=== PATIENT | male | born 1935 | race Caucasian/White ===

== ENCOUNTER 2018-01-28 10:36 | Inpatient (IN) | payer MEDICARE, OTHER ==
[2018-01-28] VITALS (11 sets, daily range): BP systolic 95–112; BP diastolic 65–81; PULSE 56–128; RESP 18–22; TEMP 97.4–97.5; O2SAT 95–98
[~2018-01-28] VITALS: Ht 198.1 cm; Wt 96.3 kg
[~2018-01-28 10:36] MED LIST: ACET325T11 PO; ARIC10TA PO; DUONI NEB; FENO50TA PO; FENT50DI T-DERMAL; IBAN150T3 PO; KETO2SHA5 TOP; LACT20SO4 PO; LEVA500T PO; LEXA10TA PO; MAGN30S PO; PERC10TA27 PO; REME30TA PO; SIMV20 PO; [UNRECOGNIZED DRUG - CODE] EX
[2018-01-28] MEDS ORDERED: FENO145T2 PO (10:55)
[2018-01-28] MEDS ORDERED: LACT10SO PO (10:55)
[2018-01-28] MEDS ORDERED: OCUVTAB4 PO (10:55)
[2018-01-28] MEDS ORDERED: SIME1CHW10 (10:55)
[2018-01-28] MEDS ORDERED: HYDR1OIN25 (10:55)
[2018-01-28] MEDS ORDERED: PERC10TA27 PO (10:55)
[2018-01-28] MEDS ORDERED: REFR0.5D4 EACH EYE (10:55)
[2018-01-28] MEDS ORDERED: MILKSUS PO (10:55)
[2018-01-28] MEDS ORDERED: IBAN150T3 PO (10:55)
[2018-01-28] MEDS ORDERED: MIRT30TA PO (10:55)
[2018-01-28] MEDS ORDERED: DILT120C9 PO (10:55)
[2018-01-28] MEDS ORDERED: TUSSLIQ3 PO (10:55)
[2018-01-28] MEDS ORDERED: FURO1TAB62 PO (10:55)
[2018-01-28] MEDS ORDERED: DONE10TA7 PO (10:55)
[2018-01-28] MEDS ORDERED: POTA10CA PO (10:55)
[2018-01-28] MEDS ORDERED: CALC1TAB12 PO (10:55)
[2018-01-28] MEDS ORDERED: KETO2CRE TOPICAL (10:55)
[2018-01-28] MEDS ORDERED: ZOCO20TA PO (10:55)
[2018-01-28] MEDS ORDERED: IPRASOL INH (10:55)
[2018-01-28] MEDS ORDERED: BENA25TA6 PO (10:55)
[2018-01-28] MEDS ORDERED: THERTAB17 PO (10:55)
[2018-01-28] MEDS ORDERED: ACET325C PO (10:55)
[2018-01-28] MEDS ORDERED: SODIUM CHLOR 0.9% 1000 ML INJ 1,000 ML IV ONE (11:00)
--- NOTE | 2018-01-28 11:19 | RADRPT ---
EXAM DATE/TIME: 01/28/2018 11:02 [facility] COMPARISON: CHEST SINGLE AP, July 18, 2016, 7:11. INDICATIONS : Short of breath MEDICAL HISTORY : None. SURGICAL HISTORY : None. ENCOUNTER: Initial ACUITY: 1 day PAIN SCORE: 0/10 LOCATION: Bilateral chest FINDINGS: A single AP semierect portable view of the chest was obtained. Elevation of the right hemidiaphragm i s again noted. Study appears more Midinspiratory with patchy perihilar and bibasal opacities noted. T here is no focal consolidation or distinct effusion. The heart size remains mildly enlarged. Atherosc lerotic changes are present in the aorta. CONCLUSION: Midinspiratory study with mild patchy perihilar and bibasilar opacities which may be artifactual. Franco Lamas MD on January 28, 2018 at 11:15 Board Certified Radiologist. This report was verified electronically.
[2018-01-28 11:32] LABS: AUTOMATED NEUTROPHIL # 6.5 TH/MM3 (1.8-7.7); BASOPHIL # 0.5 TH/MM3 (0-0.2); BASOPHIL % 4.9 % (0.0-2.0); EOSINOPHIL # 0.1 TH/MM3 (0-0.4); EOSINOPHIL % 0.6 % (0.0-4.0); HEMATOCRIT 41.1 % (39.0-51.0); HEMOGLOBIN 13.2 GM/DL (13.0-17.0); LYMPH % 13.4 % (9.0-44.0); LYMPHOCYTE # 1.2 TH/MM3 (1.0-4.8); MEAN CELL VOLUME 84.1 FL (80.0-100.0); MEAN CORPUSCULAR HEMOGLOBIN 26.9 PG (27.0-34.0); MEAN PLATELET VOLUME 7.8 FL (7.0-11.0); MONO % 9.8 % (0.0-8.0); MONOCYTE # 0.9 TH/MM3 (0-0.9); NEUT % 71.3 % (16.0-70.0); PLATELET COUNT 366 TH/MM3 (150-450); RED BLOOD COUNT 4.89 MIL/MM3 (4.50-5.90); RED CELL DISTRIBUTION WIDTH 14.6 % (11.6-17.2); WHITE BLOOD COUNT 9.2 TH/MM3 (4.0-11.0)
[2018-01-28 11:36] LABS: CHLORIDE 97 MEQ/L (98-107); SODIUM (NA) 130 MEQ/L (136-145)
[2018-01-28 11:40] LABS: CALCIUM 9.1 MG/DL (8.5-10.1)
[2018-01-28 11:41] LABS: ALBUMIN 3.1 GM/DL (3.4-5.0); BICARBONATE 26.3 MEQ/L (21.0-32.0); BLOOD UREA NITROGEN 16 MG/DL (7-18); GLUCOSE,RANDOM 131 MG/DL (74-106)
[2018-01-28 11:44] LABS: ALT (GPT) 509 U/L (12-78)
[2018-01-28 11:45] LABS: GLOMERULAR FILTRATION RATE 108 ML/MIN (>89)
[2018-01-28 11:46] LABS: TOTAL BILIRUBIN ADULT 0.7 MG/DL (0.2-1.0); TOTAL PROTEIN 7.5 GM/DL (6.4-8.2)
[2018-01-28 11:47] LABS: ALKALINE PHOSPHATASE 79 U/L (45-117)
[2018-01-28 11:49] LABS: TROPONIN I 0.06 NG/ML (0.02-0.05)
[2018-01-28 11:53] LABS: AST (GOT) 1189 U/L (15-37)
[2018-01-28] MEDS ORDERED: FUROSEMIDE 40 MG/4 ML VIAL IV PUSH ONE (12:00)
--- NOTE | 2018-01-28 13:11 | PD ---
HPI Chief Complaint: Respiratory Symptoms Time Seen by Provider: 10:50 Travel History International Travel<30 days: No Contact w/Intl Traveler<30days: No Traveled to known affect area: No History of Present Illness HPI This 82-year-old male is complaining of shortness of breath. He says he been short of breath for 2 months and seems to be getting worse. He stopped smoking 40 or 50 years ago he has not had any fever or chills. Says he had a poor appetite. He has not had any chest pain. He has no history of diabetes. He has not had any alcohol for about 10 years. He says his been in a senior living for 9 years. 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 He has not had fever or chills. He is brought by paramedics and noted that he had tachycardia at a rate of about 120 PFSH Past Medical History Hx Anticoagulant Therapy: Yes Arthritis: Yes Blood Disorders: No Bipolar Disorder: Yes Heart Rhythm Problems: No Cancer: Yes (SKIN ONLY) Cardiovascular Problems: Yes (DVT/HTN/HYPERLIPIDEMMIA) High Cholesterol: Yes Chemotherapy: No Congestive Heart Failure: Yes Cerebrovascular Accident: No Dementia: Yes Diabetes: No Endocrine: No Gastrointestinal Disorders: No Genitourinary: No Hypertension: Yes Immune Disorder: No Implanted Vascular Access Dvce: No Medical other: Yes (ENCEPHALOPATHY/DEPRESSION/ ) Musculoskeletal: Yes Neurologic: No Psychiatric: No Reproductive: No Respiratory: Yes Radiation Therapy: No Past Surgical History Abdominal Surgery: Yes (EXP LAPAROTOMY APPY) AICD: No Cardiac Surgery: No Hysterectomy: No Joint Replacement: Yes (LEFT KNEE) Pacemaker: No Thoracic Surgery: No Other Surgery: Yes (RIGHT BKA) Social History Alcohol Use: Yes (3-4 TIMES A WEEK) Tobacco Use: No Substance Use: No Allergies-Medications (Allergen,Severity, Reaction): Coded Allergies: penicillin G (Unverified Allergy, Severe, Anaphylaxis, 01/28/18) Reported Meds & Prescriptions Reported Meds & Active Scripts Active Reported Tussin Dm 100-10 mg/5Ml (Dextromethorphan-Guaifenesin) 100 Mg-10 Mg/5 Ml Liq 10 Ml PO Q6HR PRN Thera-M (Multiple Vitamins W/ Minerals) 1 Tab 1 Tab PO DAILT Zocor (Simvastatin) 20 Mg Tab 20 Mg PO HS Gas Relief (Simethicone) 80 Mg Chw Refresh Tears Opth Drops (Carboxymethylcellulose Sodium Opth Drops) 0.5% Drops 1 Drop EACH EYE DAILY Preservision Areds (Multiple Vitamins W/ Minerals) 1 Tab 1 Tab PO DAILY Potassium Chloride ER (Potassium Chloride) 10 Meq Cap 10 Meq PO DAILY Percocet (Oxycodone-Acetaminophen) 10-325 mg Tab 1 Tab PO Q4H PRN Calcium 500 +D (Calcium Carbonate-Cholecalciferol) 500-400 Mg-Unit Tab 1 Tab PO BID Mirtazapine 30 Mg Tab 30 Mg PO HS Milk of Magnesia Liq (Magnesium Hydroxide) 400 Mg/5 Ml Susp 15 Ml PO DAILY PRN Lasix (Furosemide) 20 Mg Tab 20 Mg PO BID Lactulose Liq (Lactulose) 10 Gm/15 Ml Soln 30 Ml PO DAILY Ketoconazole Topical 2% Cream 1 Applic TOPICAL BID Duoneb (Ipratropium-Albuterol Neb) 0.5-2.5 Mg/3 Ml Neb 1 Nebule INH BID Ibandronate (Ibandronate Sodium) 150 Mg Tab 150 Mg PO Q28D Fenofibrate 145 Mg Tab 145 Mg PO DAILY Donepezil 10 Mg Tab 10 Mg PO HS Diltiazem ER 12 HR (Diltiazem HCl) 120 Mg Caper 120 Mg PO BID Benadryl Allergy (Diphenhydramine HCl) 25 Mg Tablet 25 Mg PO HS PRN Acetaminophen 325 Mg Capsule 650 Mg PO Q6HR PRN Hydrocortisone 1% in Abso (Hydrocortisone (Topical)) 1 % Oin Review of Systems General / Constitutional: No: Fever, Chills Eyes: No: Diploplia, Blurred Vision HENT: No: Headaches, Vertigo Cardiovascular: Positive: Palpitations, No: Chest Pain or Discomfort Respiratory: Positive: Shortness of Breath Gastrointestinal: No: Nausea, Vomiting Genitourinary: No: Urgency, Frequency Musculoskeletal: No: Myalgias, Arthralgias Skin: No Rash Neurologic: No: Weakness, Dizziness Endocrine: No: Cold Intolerance Hematologic/Lymphatic: No: Easy Bruising Physical Exam Narrative GENERAL: Well-developed male SKIN: Focused skin assessment warm/dry. HEAD: Atraumatic. Normocephalic. EYES: Pupils equal and round. No scleral icterus. No injection or drainage. ENT: No nasal bleeding or discharge. Mucous membranes pink and moist. NECK: Trachea midline. No JVD. CARDIOVASCULAR: Rapid regular rate and rhythm. No murmur appreciated. RESPIRATORY: No accessory muscle use. There are scattered rhonchi GASTROINTESTINAL: Abdomen soft, obese, nondistended. Hepatic and splenic margins not palpable. MUSCULOSKELETAL: He has an amputation of the right leg. The left leg is held in flexion and cannot extend. 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 No obvious cranial nerve deficits. Motor grossly within normal limits. Normal speech. PSYCHIATRIC: Appropriate mood and affect; insight and judgment normal. Data Data Last Documented VS Vital Signs Date Time Temp Pulse Resp B/P (MAP) Pulse Ox O2 Delivery O2 Flow Rate FiO2 01/28/18 11:44 124 18 111/72 (85) 97 Nasal Cannula 3.00 01/28/18 10:45 97.4 Orders Orders Electrocardiogram (01/28/18 10:56) Complete Blood Count With Diff (01/28/18 10:56) Comprehensive Metabolic Panel (01/28/18 10:56) Troponin I (01/28/18 10:56) B-Type Natriuretic Peptide (01/28/18 10:56) Urinalysis - C+S If Indicated (01/28/18 10:56) Chest, Single Ap (01/28/18 10:56) Sodium Chlor 0.9% 1000 Ml Inj (Ns 1000 M (01/28/18 11:00) Ct Abd/Pel W Iv Contrast(Rout) (01/28/18 11:54) Ct Pulmonary Angiogram (01/28/18 11:54) Furosemide Inj (Lasix Inj) (01/28/18 12:00) Iohexol 350 Inj (Omnipaque 350 Inj) (01/28/18 13:34) Labs Laboratory Tests Test 01/28/18 11:20 White Blood Count 9.2 TH/MM3 Red Blood Count 4.89 MIL/MM3 Hemoglobin 13.2 GM/DL Hematocrit 41.1 % Mean Corpuscular Volume 84.1 FL Mean Corpuscular Hemoglobin 26.9 PG Mean Corpuscular Hemoglobin Concent 32.0 % Red Cell Distribution Width 14.6 % Platelet Count 366 TH/MM3 Mean Platelet Volume 7.8 FL Neutrophils (%) (Auto) 71.3 % Lymphocytes (%) (Auto) 13.4 % Monocytes (%) (Auto) 9.8 % Eosinophils (%) (Auto) 0.6 % Basophils (%) (Auto) 4.9 % Neutrophils # (Auto) 6.5 TH/MM3 Lymphocytes # (Auto) 1.2 TH/MM3 Monocytes # (Auto) 0.9 TH/MM3 Eosinophils # (Auto) 0.1 TH/MM3 Basophils # (Auto) 0.5 TH/MM3 CBC Comment DIFF FINAL Differential Comment Blood Urea Nitrogen 16 MG/DL Creatinine 0.70 MG/DL Random Glucose 131 MG/DL Total Protein 7.5 GM/DL Albumin 3.1 GM/DL Calcium Level 9.1 MG/DL Alkaline Phosphatase 79 U/L Aspartate Amino Transf (AST/SGOT) 1189 U/L Alanine Aminotransferase (ALT/SGPT) 509 U/L Total Bilirubin 0.7 MG/DL Sodium Level 130 MEQ/L Potassium Level 5.0 MEQ/L Chloride Level 97 MEQ/L Carbon Dioxide Level 26.3 MEQ/L Anion Gap 7 MEQ/L Estimat Glomerular Filtration Rate 108 ML/MIN Troponin I 0.06 NG/ML B-Type Natriuretic Peptide 917 PG/ML [facility] Medical Decision Making Medical Screen Exam Complete: Yes Emergency Medical Condition: Yes Medical Record Reviewed: Yes Differential Diagnosis Differential includes CHF, COPD, pneumonia Narrative Course EKG shows a narrow complex tachycardia at a rate of 125 there are inverted T waves in V4 and V5 as well as leads II, III and aVF. Chest x-ray is read as showing elevation of the right hemidiaphragm there are mild patchy perihilar and bibasilar opacities which may be artifactual. Patient is very large and is quite sedentary and at high risk for PE. I have ordered a CT pulmonary angiogram. His BNP is elevated. Troponin is 0.06 CT pulmonary angiogram shows evidence of right lower lobe pulmonary emboli with dense surrounding consolidation. There are small bilateral pleural effusions CT abdomen and pelvis shows cholelithiasis without gallbladder wall thickening heterogeneous liver with ill-defined low-attenuation areas and simple cyst in left lobe Diagnosis Primary Impression: Acute pulmonary embolus Dequan Felton MD Jan 28, 2018 13:11
[2018-01-28] MEDS ORDERED: IOHEXOL 350 MG/ML 10 ML VIAL (for RAD DIAG) IVCONTRAST ONE (13:34)
--- NOTE | 2018-01-28 13:50 | RADRPT ---
EXAM DATE/TIME: 01/28/2018 13:20 [facility] COMPARISON: CHEST SINGLE AP, January 28, 2018, 11:02. INDICATIONS : Short of breath. IV CONTRAST: 95 cc Omnipaque 350 (iohexol) IV ; Cumulative dose for multiple exams. RADIATION DOSE: 21.31 CTDIvol (mGy) MEDICAL HISTORY : Deep venous thrombosis. Cardiovascular disease Hypertension.Anticoagulant therapy. SURGICAL HISTORY : Appendectomy. ENCOUNTER: Initial ACUITY: 1 day PAIN SCALE: 0/10 LOCATION: chest TECHNIQUE: Volumetric scanning of the chest was performed using a pulmonary embolism protocol MIP images were re constructed. Using automated exposure control and adjustment of the mA and/or kV according to patien t size, radiation dose was kept as low as reasonably achievable to obtain optimal diagnostic quality images. DICOM format image data is available electronically for review and comparison. Follow-up recommendations for detected pulmonary nodules are based at a minimum on nodule size and pa tient risk factors according to Fleischner Society Guidelines. FINDINGS: PULMONARY ARTERIES: The main pulmonary artery and right and left branch vessels are intact. There are ill-defined filling defects and loss of normal portions of the right lower lobe pulmonary artery with dense surrounding consolidation. LUNGS: There is no pneumothorax . There is dense consolidation in the right lower lobe with air bronchograms . No concerning pulmonary nodule is visualized. PLEURAE: There are small bilateral pleural effusions. MEDIASTINUM: There is good visualization of the great vessels of the middle mediastinum. No evidence of mediastin al or hilar adenopathy/mass. Coronary artery calcifications are present. There is cardiomegaly. MUSCULOSKELETAL: Within normal limits for patient age. MISCELLANEOUS: The visualized upper abdominal organs demonstrate no acute abnormality. Multiple calcified gallstones are noted in the gallbladder. CONCLUSION: 1. Evidence of right lower lobe pulmonary emboli with dense surrounding consolidation. 2. Small bilateral pleural effusions. Franco Lamas MD on January 28, 2018 at 13:42 Board Certified Radiologist. This report was verified electronically.
--- NOTE | 2018-01-28 13:53 | RADRPT ---
EXAM DATE/TIME: 01/28/2018 13:20 [facility] COMPARISON: No previous studies available for comparison. INDICATIONS : Abdominal distention. IV CONTRAST: 95 cc Omnipaque 350 (iohexol) IV ; Cumulative dose for multiple exams. ORAL CONTRAST: No oral contrast ingested. RADIATION DOSE: 17.69 CTDIvol (mGy) MEDICAL HISTORY : Cardiovascular disease. Deep venous thrombosis. Hypertension.Anticoagulant therapy. SURGICAL HISTORY : Appendectomy. ENCOUNTER: Initial ACUITY: 1 day PAIN SCALE: 3/10 LOCATION: Bilateral pelvis abdomen TECHNIQUE: Volumetric scanning of the abdomen and pelvis was performed. Using automated exposure control and ad justment of the mA and/or kV according to patient size, radiation dose was kept as low as reasonably achievable to obtain optimal diagnostic quality images. DICOM format image data is available electro nically for review and comparison. FINDINGS: LOWER LUNGS: There is evidence of pulmonary embolism again noted in the right lower lobe pulmonary arteries with d ense consolidation. Small bilateral pleural effusions are present. LIVER: Liver is normal in size but heterogeneous in density with a simple cyst noted in the left lobe of the liver. There is no dilation of the biliary tree. There are multiple tiny calcified gallstones layeri ng dependently. SPLEEN: Normal size without lesion. PANCREAS: Within normal limits. KIDNEYS: Normal in size and shape. There is no mass, stone or hydronephrosis. ADRENAL GLANDS: Within normal limits. VASCULAR: There is no aortic aneurysm. BOWEL/MESENTERY: There are multiple loops of nondilated air-containing small bowel with multiple small air-fluid level s. There is no free air or fluid. Gas and stool noted segmental and colon. There is mild anasarca. ABDOMINAL WALL: Within normal limits. RETROPERITONEUM: There is no lymphadenopathy. BLADDER: No wall thickening or mass. REPRODUCTIVE: Within normal limits. INGUINAL: There is no lymphadenopathy or hernia. MUSCULOSKELETAL: Within normal limits for patient age. CONCLUSION: 1. Right lower lobe pulmonary embolism again identified with small bilateral pleural effusions and de nse consolidation in the right lower lobe. 2. Cholelithiasis with multiple small gallstones with no gallbladder wall thickening or pericholecyst ic fluid. 3. Nonspecific, nonobstructed bowel gas pattern most characteristic of an ileus. 4. Heterogeneous liver with ill-defined low-attenuation areas and simple cyst in the left lobe of the liver. This is nonspecific but could be secondary to fatty infiltration and focal fatty sparing. Franco Lamas MD on January 28, 2018 at 13:48 Board Certified Radiologist. This report was verified electronically.
[2018-01-28] MEDS ORDERED: ONDANSETRON HCL 4 MG/2 ML VIAL IVP PRN (15:15)
[2018-01-28] MEDS ORDERED: NALOXONE HCL 0.4 MG/ML AMP IV PUSH PRN (15:15)
[2018-01-28] MEDS ORDERED: ACETAMINOPHEN 325 MG TAB PO PRN (15:15)
[2018-01-28] MEDS ORDERED: SODIUM CHLORIDE 0.9% FLUSH 10 ML FLUSH IV FLUSH PRN (15:15)
[2018-01-28 15:16] LABS: INTERNATIONAL NORMALIZED RATIO 1.8 RATIO; PROTHROMBIN TIME - PATIENT 18.5 SEC (9.8-11.6)
--- NOTE | 2018-01-28 15:50 | HHI.HP ---
[facility] Service [facility] Primary Care Physician Js Brown M.D. Admission Diagnosis ACUTE PULMONARY EMBOLUS Diagnoses: Chief Complaint: Shortness of breath Travel History International Travel<30 Days: No Contact w/Intl Traveler <30 Da: No Traveled to Known Affected Are: No History of Present Illness This patient is an 82-year-old gentleman with at least a week of increased work of breathing and shortness of breath. Patient is poorly mobile at baseline due to previous right AKA and left leg contractures. He has had increased edema on the left extremity and increased work of breathing and shortness of breath per his report. Patient was not hypoxemic but he was hypotensive and quite edematous on arrival in the emergency room. He normally lives in a long term facility in long-term care and came for evaluation after several days of complaints. Here he has been found to be tachycardic and hypotensive with hyponatremia and elevated LFTs and elevated BNP. Patient also been evaluated by CT and joint found to have an acute pulmonary embolism. Patient is recommended for admission in the hospital by the ER MD. Patient does carry a DO NOT RESUSCITATE with him and does not want aggressive measures undertaken. Patient is hypotensive with a pulmonary embolism and is not a candidate for TPA given his underlying comorbidities. Patient would like medical management and is agreeable to heparin with some anticoagulation long-term. Of note he was recently admitted to the hospital and [facility] last month with acute onset of atrial fibrillation and deemed not a candidate for anticoagulation due to increased fall risks. At this time patient does complain of moderate back pain and previously had been taking Percocet at the rehab. Review of Systems Constitutional: COMPLAINS OF: Weight gain Endocrine: DENIES: Heat/cold intolerance, Polydipsia, Polyuria, Polyphagia Eyes: DENIES: Blurred vision, Diplopia, Eye inflammation, Eye pain, Vision loss , Photosensitivity, Double Vision Ears, nose, mouth, throat: DENIES: Tinnitus, Hearing loss, Vertigo, Nasal discharge, Oral lesions, Throat pain, Hoarseness, Ear Pain, Running Nose, Epistaxis, Sinus Pain, Toothache, Odynophagia Respiratory: COMPLAINS OF: Shortness of breath, DENIES: Apneas, Cough, Snoring , Wheezing, Hemoptysis, Sputum production Cardiovascular: COMPLAINS OF: Lower Extremity Edema, DENIES: Chest pain, Palpitations, Syncope, Dyspnea on Exertion, PND, Orthopnea, Claudication Gastrointestinal: DENIES: Abdominal pain, Black stools, Bloody stools, Constipation, Diarrhea, Nausea, Vomiting, Difficulty Swallowing, Anorexia Genitourinary: DENIES: Sexual dysfunction, Urinary frequency, Urinary incontinence, Urgency, Hematuria, Dysuria, Nocturia, Penile Discharge, Testicular Pain, Testicular Swelling Musculoskeletal: COMPLAINS OF: Joint pain, Back pain, DENIES: Muscle aches, Stiffness, Joint Swelling, Neck pain Integumentary: DENIES: Abnormal pigmentation, Nail changes, Pruritus, Rash Hematologic/lymphatic: DENIES: Bruising, Lymphadenopathy Neurologic: COMPLAINS OF: Poor Balance, DENIES: Abnormal gait, Headache, Localized weakness, Paresthesias, Seizures, Speech Problems, Tremor Psychiatric: DENIES: Anxiety, Confusion, Mood changes, Depression, Hallucinations, Agitation, Suicidal Ideation, Homicidal Ideation, Delusions Except as stated in HPI: all other systems reviewed are Neg Past Family Social History Past Medical History Atrial fibrillation Hyperlipidemia History of dementia, and depression Past Surgical History Right AKA, expiratory laparotomy Appendectomy ectomy Reported Medications Reviewed in the EMR and [facility] records Allergies: Coded Allergies: penicillin G (Unverified Allergy, Severe, Anaphylaxis, 01/28/18) Active Ordered Medications Reviewed in the EMR Family History Noncontributory secondary to acute complaint Social History No current tobacco, rehab resident in long-term care Physical Exam Vital Signs Vital Signs Date Time Temp Pulse Resp B/P (MAP) Pulse Ox O2 Delivery O2 Flow Rate FiO2 01/28/18 11:44 124 18 111/72 (85) 97 Nasal Cannula 3.00 01/28/18 11:31 96 Nasal Cannula 3.00 01/28/18 10:45 97.4 124 22 98/81 (87) 96 Physical Exam GENERAL: This is a well-nourished, well-developed patient, complaining of back pain and short of breath SKIN: No rashes, ecchymoses or lesions. Cool and dry. HEAD: Atraumatic. Normocephalic. No temporal or scalp tenderness. EYES: Pupils equal round and reactive. Extraocular motions intact. No scleral icterus. No injection or drainage. ENT: Nose without bleeding, purulent drainage or septal hematoma. Throat without erythema, tonsillar hypertrophy or exudate. Uvula midline. Airway patent. NECK: Trachea midline. No JVD or lymphadenopathy. Supple, nontender, no meningeal signs. CARDIOVASCULAR: Tachycardia rhythm without murmurs, gallops, or rubs. RESPIRATORY: Decreased breath sounds bilaterally Poor effort GASTROINTESTINAL: Abdomen soft, non-tender, nondistended. No hepato-splenomegaly , or palpable masses. No guarding. MUSCULOSKELETAL: Right AKA,, left leg contractures, +3 edema left leg NEUROLOGICAL: Awake and alert. Cranial nerves II through XII intact. Motor and sensory grossly within normal limits. Five out of 5 muscle strength in all muscle groups. Normal speech. Laboratory Laboratory Tests Test 01/28/18 11:20 01/28/18 14:30 White Blood Count 9.2 Red Blood Count 4.89 Hemoglobin 13.2 Hematocrit 41.1 Mean Corpuscular Volume 84.1 Mean Corpuscular Hemoglobin 26.9 Mean Corpuscular Hemoglobin Concent 32.0 Red Cell Distribution Width 14.6 Platelet Count 366 Mean Platelet Volume 7.8 Neutrophils (%) (Auto) 71.3 Lymphocytes (%) (Auto) 13.4 Monocytes (%) (Auto) 9.8 Eosinophils (%) (Auto) 0.6 Basophils (%) (Auto) 4.9 Neutrophils # (Auto) 6.5 Lymphocytes # (Auto) 1.2 Monocytes # (Auto) 0.9 Eosinophils # (Auto) 0.1 Basophils # (Auto) 0.5 CBC Comment DIFF FINAL Differential Comment Blood Urea Nitrogen 16 Creatinine 0.70 Random Glucose 131 Total Protein 7.5 Albumin 3.1 Calcium Level 9.1 Alkaline Phosphatase 79 Aspartate Amino Transf (AST/SGOT) 1189 Alanine Aminotransferase (ALT/SGPT) 509 Total Bilirubin 0.7 Sodium Level 130 Potassium Level 5.0 Chloride Level 97 Carbon Dioxide Level 26.3 Anion Gap 7 Estimat Glomerular Filtration Rate 108 Troponin I 0.06 B-Type Natriuretic Peptide 917 Result Diagram: 01/28/18 1120 01/28/18 [address] Angiography 01/28/18 1154 Signed Impressions: Service Date/Time: Sunday, January 28, 2018 13:20 - CONCLUSION: 1. Evidence of right lower lobe pulmonary emboli with dense surrounding consolidation. 2. Small bilateral pleural effusions. Franco Lamas MD Abdomen/Pelvis CT 01/28/18 1154 Signed Impressions: Service Date/Time: Sunday, January 28, 2018 13:20 - CONCLUSION: 1. Right lower lobe pulmonary embolism again identified with small bilateral pleural effusions and dense consolidation in the right lower lobe. 2. Cholelithiasis with multiple small gallstones with no gallbladder wall thickening or pericholecystic fluid. 3. Nonspecific, nonobstructed bowel gas pattern most characteristic of an ileus. 4. Heterogeneous liver with ill-defined low-attenuation areas and simple cyst in the left lobe of the liver. This is nonspecific but could be secondary to fatty infiltration and focal fatty sparing. Franco Lamas MD Chest X-Ray 01/28/18 1056 Signed Impressions: Service Date/Time: Sunday, January 28, 2018 11:02 - CONCLUSION: Midinspiratory study with mild patchy perihilar and bibasilar opacities which may be artifactual. Franco Lamas MD Caprini VTE Risk Assessment Caprini VTE Risk Assessment: Mod/High Risk (score >= 2) Caprini Risk Assessment Model Point Value = 1 Point Value = 2 Point Value = 3 Point Value = 5 Age 41-60 Minor surgery BMI > 25 kg/m2 Swollen legs Varicose veins or History of unexplained or recurrent spontaneous Oral contraceptives or hormone replacement Sepsis (< 1 month) Serious lung disease, including pneumonia (< 1 month) Abnormal pulmonary function Acute myocardial infarction Congestive heart failure (< 1 month) History of inflammatory bowel disease Medical patient at bed rest Age 61-74 Arthroscopic surgery Major open surgery (> 45 min) Laparoscopic surgery (> 45 min) Malignancy Confined to bed (> 72 hours) Immobilizing plaster cast Central venous access Age >= 75 History of VTE Family history of VTE Factor V Leiden Prothrombin [id number] Lupus anticoagulant Anticardiolipin antibodies Elevated serum homocysteine Heparin-induced thrombocytopenia Other congenital or acquired thrombophilia Stroke (< 1 month) Elective arthroplasty Hip, pelvis, or leg fracture Acute spinal cord injury (< 1 month) Prophylaxis Regimen Total Risk Factor Score Risk Level Prophylaxis Regimen 0-1 Low Early ambulation 2 Moderate Order ONE of the following: *Sequential Compression Device (SCD) *Heparin 5000 units SQ BID 3-4 Higher Order ONE of the following medications: *Heparin 5000 units SQ TID *Enoxaparin/Lovenox 40 mg SQ daily (WT < 150 kg, CrCl > 30 mL/min) *Enoxaparin/Lovenox 30 mg SQ daily (WT < 150 kg, CrCl > 10-29 mL/min) *Enoxaparin/Lovenox 30 mg SQ BID (WT < 150 kg, CrCl > 30 mL/min) AND/OR *Sequential Compression Device (SCD) 5 or more Highest Order ONE of the following medications: *Heparin 5000 units SQ TID (Preferred with Epidurals) *Enoxaparin/Lovenox 40 mg SQ daily (WT < 150 kg, CrCl > 30 mL/min) *Enoxaparin/Lovenox 30 mg SQ daily (WT < 150 kg, CrCl > 10-29 mL/min) *Enoxaparin/Lovenox 30 mg SQ BID (WT < 150 kg, CrCl > 30 mL/min) AND *Sequential Compression Device (SCD) Assessment and Plan Problem List: (1) CHF exacerbation ICD Code: I50.9 - Heart failure, unspecified Plan: Continue gentle diuresis Echocardiogram Patient with pulmonary embolism at this time We will consult cardiology Patient with previous atrial fibrillation and is still quite tachycardic at this time Continue telemetry Follow-up electrolytes Continue with DNR STATUS confirmed with patient (2) Hyponatremia ICD Code: E87.1 - Hypo-osmolality and hyponatremia Plan: Likely secondary to volume overload We will continue with gentle diuresis and follow clinically And further workup if no improvement (3) Hypotension ICD Code: I95.9 - Hypotension, unspecified Plan: Multifactorial due to third spacing from CHF Patient also with acute pulmonary embolism and with poor oral intake per [facility] records We will follow closely with gentle diuresis Patient not complaining of chest pain He is alert and oriented (4) Hyperglycemia ICD Code: R73.9 - Hyperglycemia, unspecified Plan: Continue to follow closely, no history of diabetes May be stress reaction (5) Transaminitis ICD Code: R74.0 - Nonspecific elevation of levels of transaminase and lactic acid dehydrogenase [LDH] Plan: Likely multifactorial due to alcohol (patient is a rehab resident), v. passive congestion due to congestive heart failure v. Acute viral illness Follow-up liver ultrasound and continue with diuresis (6) Elevated troponin ICD Code: R74.8 - Abnormal levels of other serum enzymes Plan: Multifactorial due to tachycardia, dysrhythmia and CHF Continue with heparin Continue diltiazem Consider beta-malik if uncontrolled, we will follow-up echocardiogram Patient is a poor candidate for any cardiac intervention given his baseline status and current goals of treatment (7) Pleural effusion ICD Code: J90 - Pleural effusion, not elsewhere classified Plan: Likely secondary to CHF exacerbation however there is some consolidative changes Continue empiric Levaquin, patient is empirically treated based on low risk of MDR and early healthcare associated pneumonia probability (8) Afib ICD Code: I48.91 - Unspecified atrial fibrillation Plan: Continue diltiazem Continue telemetry Follow-up electrolytes Previously assessed for the first time in December at [facility]. That time he was deemed not a candidate for anticoagulation due to chronic debilitated status and fall risk. (9) Acute pulmonary embolus ICD Code: I26.99 - Other pulmonary embolism without acute cor pulmonale Status: Acute Plan: Continue heparin, patient likely a candidate for warfarin Patient also with hypotension and tachycardia We will follow-up echocardiogram Patient has chronic debilitation and has a DO NOT RESUSCITATE order which she would like to continue. At this point I do not believe the patient is a candidate for TPA. We will continue with conservative management and follow clinically Code Status DNR Discussed Condition With Patient, ER MD Physician Certification 2 Midnight Certification Type: Admission for Inpatient Services Order for Inpatient Services The services are ordered in accordance with Medicare regulations or non- Medicare payer requirements, as applicable. In the case of services not specified as inpatient-only, they are appropriately provided as inpatient services in accordance with the 2-midnight benchmark. Estimated LOS (days): 3 3 days is the estimated time the patient will need to remain in the hospital, assuming treatment plan goals are met and no additional complications. Post-Hospital Plan: SNF Julia Johnson MD Jan 28, 2018 15:50
[2018-01-28] MEDS ORDERED: diphenhydrAMINE HCL 25 MG CAP PO PRN (16:15)
[2018-01-28] MEDS: HEPARIN-D5W 25,000 U/250 ML 250 ML IV PRN (16:52)
[2018-01-28] MEDS ORDERED: LEVOFLOXACIN 500 MG PREMIX INJ 100 ML IV SCH (17:00)
[2018-01-28 17:13] LABS: ACETAMINOPHEN LESS THAN 2.0 MCG/ML (10.0-30.0)
[2018-01-28] MEDS: FUROSEMIDE 40 MG/4 ML VIAL IV PUSH SCH (20:01)
[2018-01-28] MEDS: SODIUM CHLORIDE 0.9% FLUSH 10 ML FLUSH IV FLUSH SCH (21:00)
[2018-01-28] MEDS: MIRTAZAPINE 15 MG TAB PO SCH (21:42)
[2018-01-28] MEDS: DILTIAZEM-CD 120 MG CAP ER PO SCH (21:42)
[2018-01-28] MEDS: CALCIUM/VITAMIN D 250 MG/125 U TAB PO SCH (21:42)
[2018-01-28] MEDS: DONEPEZIL HCL 5 MG TAB PO SCH (21:53)
--- NOTE | 2018-01-28 23:56 | EKG ---
Date Performed: 01/28/2018 Time Performed: 11:13:30 PTAGE: 82 years EKG: PROBABLE SINUS TACHYCARDIA WITH FIRST DEGREE AV BLOCK POSSIBLE RIGHT VENTRICULAR CONDUCTION DELAY MODERATE T-WAVE ABNORMALITY, CONSIDER INFERIOR ISCHEMIA ABNORMAL ECG PREVIOUS TRACING : 07/18/2016 06.54 Compared to previous tracing, unable to compare due to bas smith artifact on previous DOCTOR: Jesus San Interpretating Date/Time 01/28/2018 23:55:24
[2018-01-29 00:33] VITALS: BP 106/60; PULSE 126; RESP 22; TEMP 98.7; O2SAT 96
[2018-01-29 04:20] VITALS: BP 115/85; PULSE 112; RESP 24; TEMP 98.1; O2SAT 96
[2018-01-29 05:39] LABS: AUTOMATED NEUTROPHIL # 4.8 TH/MM3 (1.8-7.7); BASOPHIL # 0.2 TH/MM3 (0-0.2); BASOPHIL % 3.3 % (0.0-2.0); EOSINOPHIL # 0.1 TH/MM3 (0-0.4); EOSINOPHIL % 1.8 % (0.0-4.0); HEMATOCRIT 38.7 % (39.0-51.0); HEMOGLOBIN 12.4 GM/DL (13.0-17.0); LYMPH % 18.3 % (9.0-44.0); LYMPHOCYTE # 1.3 TH/MM3 (1.0-4.8); MEAN CELL VOLUME 84.9 FL (80.0-100.0); MEAN CORPUSCULAR HEMOGLOBIN 27.3 PG (27.0-34.0); MEAN CORPUSCULAR HGB CONC 32.1 % (32.0-36.0); MEAN PLATELET VOLUME 8.5 FL (7.0-11.0); MONO % 10.7 % (0.0-8.0); MONOCYTE # 0.8 TH/MM3 (0-0.9); NEUT % 65.9 % (16.0-70.0); PLATELET COUNT 275 TH/MM3 (150-450); RED BLOOD COUNT 4.56 MIL/MM3 (4.50-5.90); RED CELL DISTRIBUTION WIDTH 14.8 % (11.6-17.2); WHITE BLOOD COUNT 7.2 TH/MM3 (4.0-11.0)
[2018-01-29 06:27] LABS: ALBUMIN 2.9 GM/DL (3.4-5.0); ALKALINE PHOSPHATASE 77 U/L (45-117); ALT (GPT) 377 U/L (12-78); AST (GOT) 611 U/L (15-37); BICARBONATE 29.6 MEQ/L (21.0-32.0); BLOOD UREA NITROGEN 13 MG/DL (7-18); CALCIUM 8.9 MG/DL (8.5-10.1); CHLORIDE 97 MEQ/L (98-107); CREATININE 0.63 MG/DL (0.60-1.30); GLOMERULAR FILTRATION RATE 122 ML/MIN (>89); GLUCOSE,RANDOM 101 MG/DL (74-106); SODIUM (NA) 132 MEQ/L (136-145); TOTAL BILIRUBIN ADULT 0.8 MG/DL (0.2-1.0); TOTAL PROTEIN 7.1 GM/DL (6.4-8.2)
[2018-01-29] MEDS ORDERED: DILTIAZEM HCL 30 MG TAB PO ONE (08:00)
[2018-01-29] MEDS: FUROSEMIDE 40 MG/4 ML VIAL IV PUSH SCH ×2 (08:59→17:33)
[2018-01-29] MEDS: LACTULOSE SYRUP 20 GM/30 ML CUP PO SCH (08:59)
[2018-01-29] MEDS: DILTIAZEM-CD 120 MG CAP ER PO SCH ×2 (08:59→21:09)
[2018-01-29] MEDS: CALCIUM/VITAMIN D 250 MG/125 U TAB PO SCH ×2 (08:59→21:08)
[2018-01-29] MEDS: HEPARIN-D5W 25,000 U/250 ML 250 ML IV PRN (09:03)
[2018-01-29] MEDS: SODIUM CHLORIDE 0.9% FLUSH 10 ML FLUSH IV FLUSH SCH ×2 (09:07→21:07)
--- NOTE | 2018-01-29 09:09 | RADRPT ---
EXAM DATE/TIME: 01/29/2018 08:17 [place] COMPARISON: No previous studies available for comparison. INDICATIONS : Increased lab values. MEDICAL HISTORY : Congestive heart failure. Hypercholesterolemia. Hypertension. Dementia. Anticoagulant therapy. Dyspne a. Arthritis. Skin cancer. SURGICAL HISTORY : Appendectomy. Arthroscopy. Bilateral cataract surgery. Left knee replacement. ENCOUNTER: Initial ACUITY: 1 day PAIN SCORE: 0/10 LOCATION: Bilateral upper quadrant MEASUREMENTS: LIVER: 14.2 cm length COMMON DUCT: 4 mm RIGHT KIDNEY: 8.6 x 5.3 x 5.0 cm SPLEEN: 7.6 cm length FINDINGS: LIVER: Portions of the liver are obscured due to patient body habitus and overlying bowel gas. Coarse echote xture of the liver is noted. No focal mass identified. Portal venous flow is hepatopedal. COMMON DUCT: No intraluminal mass or stone visualized. GALLBLADDER: Multiple shadowing calculi identified. Wall thickness within normal limits. No pericholecystic fluid identified. PANCREAS: Poorly visualized due to overlying bowel gas. RIGHT KIDNEY: No hydronephrosis, stone or mass. SPLEEN: No focal lesion. CONCLUSION: 1. Cholelithiasis. 2. Diffusely coarse echotexture of the liver without focal mass. Zachary Deng MD on January 29, 2018 at 9:04 Board Certified Radiologist. This report was verified electronically.
--- NOTE | 2018-01-29 11:41 | HHI.PR ---
Subjective Remarks Nursing denies any deterioration since last night except for tachycardia still persisting in the 120s. Patient himself subjectively report denies any shortness of breath but he is labored in his breathing. Objective Vital Signs Date Time Temp Pulse Resp B/P (MAP) Pulse Ox O2 Delivery O2 Flow Rate FiO2 01/29/18 04:20 98.1 112 24 115/85 (95) 96 01/29/18 00:33 98.7 126 22 106/60 (75) 96 01/28/18 23:11 128 01/28/18 22:22 97.4 127 20 106/68 (81) 98 01/28/18 20:25 97 Nasal Cannula 3.00 01/28/18 18:45 97.5 125 22 105/65 (78) 98 01/28/18 18:45 125 01/28/18 18:30 128 18 95/75 (82) 97 01/28/18 15:15 95 Nasal Cannula 3.00 01/28/18 15:00 128 18 112/73 (86) 95 Nasal Cannula 3.00 01/28/18 14:00 126 20 109/69 (82) 98 Nasal Cannula 3.00 01/28/18 13:00 124 20 106/73 (84) 96 Nasal Cannula 2.00 01/28/18 11:44 124 18 111/72 (85) 97 Nasal Cannula 3.00 I/O 01/28/18 01/28/18 01/28/18 01/29/18 01/29/18 01/29/18 07:00 15:00 23:00 07:00 15:00 23:00 Intake Total 150 ml 150 ml Balance 150 ml 150 ml Intake Oral 150 ml IV Total 150 ml # Voids 1 5 3 # Bowel Movements 1 1 Result Diagram: 01/29/180 01/29/18 0440 Objective Remarks Diminished breath sounds in the bases, heart rate is tachycardic and regular, on nasal cannula, no cyanosis Scrotal edema secondary to anasarca noted A/P Assessment and Plan SOB -Likely multifactorial from CHF exacerbation as well as pulmonary embolism -See treatment below CHF exacerbation likely secondary to A. fib with RVR -IV diuresis, control A. fib as below A. fib with RVR -Likely worsened with pulmonary embolism, continue extended release Cardizem, will add on short acting Cardizem Pulmonary embolism -Heparin drip for now; can likely transition over to novel oral anticoagulant since pt does not want to get stuck anymore Hyponatremia Likely secondary to volume overload We will continue with gentle diuresis and follow clinically And further workup if no improvement Hypotension improved Transaminitis Likely multifactorial due to alcohol (patient is a rehab resident), v. passive congestion due to congestive heart failure v. Acute viral illness Follow-up liver ultrasound and continue with diuresis Elevated troponin Multifactorial due to tachycardia, dysrhythmia and CHF Continue with heparin Continue diltiazem Consider beta-malik if uncontrolled, we will follow-up echocardiogram Patient is a poor candidate for any cardiac intervention given his baseline status and current goals of treatment; no need for cards consult at this time Hyperglycemia Continue to follow closely, no history of diabetes May be stress reaction Pleural effusion Likely secondary to CHF exacerbation however there is some consolidative changes Continue empiric Levaquin, patient is empirically treated based on low risk of MDR and early healthcare associated pneumonia probability Discharge Planning Patient open to comfort care options, does not want IV sticking anymore. Will consult palliative care. Alexis Beverly MD Jan 29, 2018 11:41
[2018-01-29 14:03] LABS: BILIRUBIN, URINE NEG (NEG); BLOOD, URINE NEG (NEG); GLUCOSE,URINE NEG (NEG); KETONE, URINE NEG (NEG); NITRITE,URINE NEG (NEG); PH, URINE 5.5 (5.0-8.5); URINE COLOR YELLOW (YELLW/STRAW); URINE LEUKOCYTE ESTERASE NEG (NEG)
[2018-01-29 14:13] LABS: SQUAMOUS EPITHELIAL CELL URINE 0-2 /hpf (0-5); WBC, URINE 0-2 /hpf (0-5)
--- NOTE | 2018-01-29 14:34 | PD.CONS ---
Consult Service Palliative Care . Consult Requested By Dr. Beverly . Primary Care Physician Js Brown M.D. . Reason for Consultation a. To assist with evaluation and management of symptoms including: dyspnea, debility b. To assist medical decision maker(s) with: better understanding of current medical conditions; weighing benefits/burdens of medical treatment options; making medical treatment decisions. . HPI History of Present Illness Mr. Mcclellan is an 82-[facility]-old [facility] resident who presented to [facility] ED on 01/28/2018 for evaluation of shortness of breath. The patient reported he has had progressively worsening shortness of breath x 2 months. Patient has a history of tobacco abuse as well as alcohol dependence. He reportedly quit smoking 40-50 years ago and stopped drinking about 10 years ago. The patient has been non-ambulatory status post an accident 9 years ago where he fell at home crushing his right knee with subsequent AKA. Additional diagnostic data: * Vital signs: Pulse 124, respirations 22, BP 98/81, oxygen saturation 96% on 3 L via nasal cannula and oral temperature of 97.4 * WBC: 9.2, hemoglobin 13.2, hematocrit 41.1, platelets 366, neutrophils 71.3% * Sodium: 130, potassium 5.0, chloride 97, carbon dioxide 26.3, glucose 131, calcium 9.1 * BUN: 16, creatinine 0.70, GFR 108 * Total bilirubin: 0.7, AST 1189, ALT 509, alkaline phosphatase 79 * Troponin: 0.06 * BNP: 917 * Total protein: 7.5, albumin 3.1 * PT: 18.5, INR 1.8, APTT 30.5 * Urinalysis WNL * Hemoccult negative stool Chest x-ray is read as showing elevation of the right hemidiaphragm there are mild patchy perihilar and bibasilar opacities which may be artifactual. Patient is very large and is quite sedentary and at high risk for PE. A CT pulmonary angiogram was ordered and revealed evidence of right lower lobe pulmonary emboli with dense surrounding consolidation and small bilateral pleural effusions. Subsequent CT abdomen/pelvis showed cholelithiasis without gallbladder wall thickening, heterogeneous liver with ill-defined low attenuation areas and simple cyst in the left lobe. Patient was admitted for further evaluation and medical management of an acute pulmonary embolus. Patient carries a DO NOT RESUSCITATE with him and does not want aggressive measures undertaken. He is hypotensive with a pulmonary embolism and is not a candidate for TPA given his underlying comorbidities. Patient would like medical management and is agreeable to heparin with some anticoagulation long- term. Of note, patient was recently admitted to [facility] with acute onset of atrial fibrillation and it was determined he was not a candidate for anticoagulation therapy due to increased falls. Palliative Care was consulted to assist with symptom management and to discuss with the patient/family the benefits and burdens of his current illnesses and the options regarding future care. Patient seen and assessed in the intensive care unit, room 8404. He is alert and oriented to person, place and situation. Patient denies dyspnea and oxygen saturations are stable on supplemental oxygen, however the patient is tachypneic. Patient denies pain on examination. His left leg is edematous and weeping. We had a lengthy conversation about aggressive versus comfort focused medical treatment goals. Patient clearly indicating that he wants to return to his the [facility] to be kept comfortable; he states he does not want any one else "poking at me." Phone call placed to patient's son, with the patient's permission, to inform him that the patient has decided to meet with hospice. . . Function/Cognitive Trajectory Patient has been a [facility] resident for the past 9 years after crushing his right knee when he fell in his home with a subsequent right AKA. Patient is wheelchair bound and dependent for transfers. 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 Patient requires assistance with ADLs. . Review of Systems Constitutional: COMPLAINS OF: Generalized weakness, DENIES: Change in appetite Cardiovascular: COMPLAINS OF: Lower Extremity Edema (Left lower extremity edematous and weeping; status post right AKA) Musculoskeletal: COMPLAINS OF: Decreased range of motion Hematologic/Lymphatics: COMPLAINS OF: Bruising Neurologic: COMPLAINS OF: Localized weakness Past Family Social History Coded Allergies: penicillin G (Unverified Allergy, Severe, Anaphylaxis, 01/28/18) Past Medical History Atrial fibrillation Hyperlipidemia History of dementia History of psychosis/bipolar disorder History of alcohol dependence Coronary artery disease CHF Hypertension Past Surgical History Right AKA. Left knee replacement Exploratory laparotomy Appendectomy . Reported Medications Tussin Dm 100-10 mg/5Ml (Dextromethorphan-Guaifenesin) 100 Mg-10 Mg/5 Ml Liq 10 Ml PO Q6HR PRN Thera-M (Multiple Vitamins W/ Minerals) 1 Tab 1 Tab PO DAILT Zocor (Simvastatin) 20 Mg Tab 20 Mg PO HS Gas Relief (Simethicone) 80 Mg Chw Refresh Tears Opth Drops (Carboxymethylcellulose Sodium Opth Drops) 0.5% Drops 1 Drop EACH EYE DAILY Preservision Areds (Multiple Vitamins W/ Minerals) 1 Tab 1 Tab PO DAILY Potassium Chloride ER (Potassium Chloride) 10 Meq Cap 10 Meq PO DAILY Percocet (Oxycodone-Acetaminophen) 10-325 mg Tab 1 Tab PO Q4H PRN Calcium 500 +D (Calcium Carbonate-Cholecalciferol) 500-400 Mg-Unit Tab 1 Tab PO BID Mirtazapine 30 Mg Tab 30 Mg PO HS Milk of Magnesia Liq (Magnesium Hydroxide) 400 Mg/5 Ml Susp 15 Ml PO DAILY PRN Lasix (Furosemide) 20 Mg Tab 20 Mg PO BID Lactulose Liq (Lactulose) 10 Gm/15 Ml Soln 30 Ml PO DAILY Ketoconazole Topical 2% Cream 1 Applic TOPICAL BID Duoneb (Ipratropium-Albuterol Neb) 0.5-2.5 Mg/3 Ml Neb 1 Nebule INH BID Ibandronate (Ibandronate Sodium) 150 Mg Tab 150 Mg PO Q28D Fenofibrate 145 Mg Tab 145 Mg PO DAILY Donepezil 10 Mg Tab 10 Mg PO HS Diltiazem ER 12 HR (Diltiazem HCl) 120 Mg Caper 120 Mg PO BID Benadryl Allergy (Diphenhydramine HCl) 25 Mg Tablet 25 Mg PO HS PRN Acetaminophen 325 Mg Capsule 650 Mg PO Q6HR PRN Hydrocortisone 1% in Abso (Hydrocortisone (Topical)) 1 % Oin . Current Medications Medications (Trade) Dose Ordered Sig/Zackery Route Start Time Stop Time Status Last Admin (NS Flush) 2 ml UNSCH PRN IV FLUSH 01/28/18 15:15 (NS Flush) 2 ml BID IV FLUSH 01/28/18 21:00 01/29/18 09:07 (Tylenol) 650 mg Q4H PRN PO 01/28/18 15:15 (Zofran Inj) 4 mg Q6H PRN IVP 01/28/18 15:15 (Narcan Inj) 0.4 mg UNSCH PRN IV PUSH 01/28/18 15:15 Heparin Sodium/ Dextrose 250 ml @ 18 mls/hr TITRATE PRN IV 01/28/18 15:15 01/29/18 09:03 (Lasix Inj) 40 mg BID@09,18 IV PUSH 01/28/18 18:00 01/29/18 08:59 (Roxicodone) 10 mg Q4H PRN PO 01/28/18 15:15 01/28/18 16:53 (Duoneb Neb) 1 ampule Q2HR NEB PRN NEB 01/28/18 15:15 (Aricept) 10 mg HS PO 01/28/18 21:00 01/28/18 21:53 (Lactulose Liq) 30 ml DAILY PO 01/29/18 09:00 01/29/18 08:59 (Remeron) 30 mg HS PO 01/28/18 21:00 01/28/18 21:42 (Oscal-D 250-125) 500 mg BID PO 01/28/18 21:00 01/29/18 08:59 (Cardizem Cd) 120 mg BID PO 01/28/18 21:00 01/29/18 08:59 (Benadryl) 25 mg HS PRN PO 01/28/18 16:15 (Levaquin) 500 mg DAILY@1600 PO 01/29/18 16:00 Family History Noncontributory secondary to acute complaint Substance Use Tobacco: Previous smoker, quit 40-50 years ago. Alcohol: History of EtOH abuse, quit approximately 10 years ago Prescription med abuse: None known Illicits: None unknown . Psychosocial History Patient is retired. He has a college education. Patient has 4 adult children ( 3 daughters and 1 son). . Spiritual/Cultural Factors [facility] . Living Will: Copy in medical record Health Care Surrogate: Copy in medical record Date completed: 09/07/10 . Health Care Surrogate(s): Son, Adama Mcclellan, is the designated healthcare surrogate decision maker. . Today's verbally stated goals: Patient indicates he wants to return to the [facility] and be kept comfortable. . Family/friends goals: Patient's son verbalizes support of his father's medical treatment goals. . Ethical and Legal Issues No known ethical or legal issues at this time. Physical Exam Vital Signs Date Time Temp Pulse Resp B/P (MAP) Pulse Ox O2 Delivery O2 Flow Rate FiO2 01/29/18 04:20 98.1 112 24 115/85 (95) 96 01/29/18 00:33 98.7 126 22 106/60 (75) 96 01/28/18 23:11 128 01/28/18 22:22 97.4 127 20 106/68 (81) 98 01/28/18 20:25 97 Nasal Cannula 3.00 01/28/18 18:45 97.5 125 22 105/65 (78) 98 01/28/18 18:45 125 01/28/18 18:30 128 18 95/75 (82) 97 01/28/18 15:15 95 Nasal Cannula 3.00 01/28/18 15:00 128 18 112/73 (86) 95 Nasal Cannula 3.00 . Exam CONSTITUTIONAL/GENERAL: This is an adequately nourished patient who appears to be in moderate respiratory distress. TUBES/LINES/DRAINS: PIV SKIN: No jaundice, rashes, or lesions. Ecchymoses on upper extremities. No wounds seen anteriorly. Skin temperature appropriate. Not diaphoretic. HEAD: Atraumatic. Normocephalic. EYES: Pupils equal and round and reactive. Extraocular motions intact. No scleral icterus. No injection or drainage. Fundi not examined. ENT: Hearing grossly normal. Nose without bleeding or purulent drainage NECK: Trachea midline. Supple, nontender. No palpable thyroid enlargement or nodularity. CARDIOVASCULAR: Tachycardic without murmurs, gallops, or rubs. No JVD. Peripheral pulses symmetric. RESPIRATORY/CHEST: Tachypneic. Clear to auscultation. Breath sounds equal bilaterally. No wheezes, rales, or rhonchi. GASTROINTESTINAL: Abdomen soft, non-tender, nondistended. No hepato-splenomegaly , or palpable masses. No guarding. Bowel sounds present. GENITOURINARY: Without palpable bladder distension. MUSCULOSKELETAL: Left lower extremity contracted, 3+ edema and weeping; right lower extremity status post AKA. Upper extremities contracted bilaterally. LYMPHATICS: No palpable cervical or supraclavicular adenopathy. NEUROLOGICAL: Awake and alert. Follows commands. Cognitively sharp. PSYCHIATRIC: No obvious anxiety/depression. No apparent hallucinations or other psychotic thought process. . Diagnostic Tests Laboratory Laboratory Tests Test 01/28/18 11:20 01/28/18 14:30 01/28/18 16:05 01/28/18 22:40 White Blood Count 9.2 TH/MM3 (4.0-11.0) Red Blood Count 4.89 MIL/MM3 (4.50-5.90) Hemoglobin 13.2 GM/DL (13.0-17.0) Hematocrit 41.1 % (39.0-51.0) Mean Corpuscular Volume 84.1 FL (80.0-100.0) Mean Corpuscular Hemoglobin 26.9 PG (27.0-34.0) Mean Corpuscular Hemoglobin Concent 32.0 % (32.0-36.0) Red Cell Distribution Width 14.6 % (11.6-17.2) Platelet Count 366 TH/MM3 (150-450) Mean Platelet Volume 7.8 FL (7.0-11.0) Neutrophils (%) (Auto) 71.3 % (16.0-70.0) Lymphocytes (%) (Auto) 13.4 % (9.0-44.0) Monocytes (%) (Auto) 9.8 % (0.0-8.0) Eosinophils (%) (Auto) 0.6 % (0.0-4.0) Basophils (%) (Auto) 4.9 % (0.0-2.0) Neutrophils # (Auto) 6.5 TH/MM3 (1.8-7.7) Lymphocytes # (Auto) 1.2 TH/MM3 (1.0-4.8) Monocytes # (Auto) 0.9 TH/MM3 (0-0.9) Eosinophils # (Auto) 0.1 TH/MM3 (0-0.4) Basophils # (Auto) 0.5 TH/MM3 (0-0.2) CBC Comment DIFF FINAL Differential Comment Blood Urea Nitrogen 16 MG/DL (7-18) Creatinine 0.70 MG/DL (0.60-1.30) Random Glucose 131 MG/DL (74-106) Total Protein 7.5 GM/DL (6.4-8.2) Albumin 3.1 GM/DL (3.4-5.0) Calcium Level 9.1 MG/DL (8.5-10.1) Alkaline Phosphatase 79 U/L (45-117) Aspartate Amino Transf (AST/SGOT) 1189 U/L (15-37) Alanine Aminotransferase (ALT/SGPT) 509 U/L (12-78) Total Bilirubin 0.7 MG/DL (0.2-1.0) Sodium Level 130 MEQ/L (136-145) Potassium Level 5.0 MEQ/L (3.5-5.1) Chloride Level 97 MEQ/L (98-107) Carbon Dioxide Level 26.3 MEQ/L (21.0-32.0) Anion Gap 7 MEQ/L (5-15) Estimat Glomerular Filtration Rate 108 ML/MIN (>89) Troponin I 0.06 NG/ML (0.02-0.05) 0.06 NG/ML (0.02-0.05) B-Type Natriuretic Peptide 917 PG/ML (0-100) Prothrombin Time 18.5 SEC (9.8-11.6) Prothromb Time International Ratio 1.8 RATIO Activated Partial Thromboplast Time 30.5 SEC (24.3-30.1) 79.0 SEC (24.3-30.1) Total Creatine Kinase 34 U/L (39-308) Acetaminophen Level LESS THAN 2.0 MCG/ML Test 01/29/18 04:40 01/29/18 06:30 01/29/18 09:30 01/29/18 13:00 White Blood Count 7.2 TH/MM3 (4.0-11.0) Red Blood Count 4.56 MIL/MM3 (4.50-5.90) Hemoglobin 12.4 GM/DL (13.0-17.0) Hematocrit 38.7 % (39.0-51.0) Mean Corpuscular Volume 84.9 FL (80.0-100.0) Mean Corpuscular Hemoglobin 27.3 PG (27.0-34.0) Mean Corpuscular Hemoglobin Concent 32.1 % (32.0-36.0) Red Cell Distribution Width 14.8 % (11.6-17.2) Platelet Count 275 TH/MM3 (150-450) Mean Platelet Volume 8.5 FL (7.0-11.0) Neutrophils (%) (Auto) 65.9 % (16.0-70.0) Lymphocytes (%) (Auto) 18.3 % (9.0-44.0) Monocytes (%) (Auto) 10.7 % (0.0-8.0) Eosinophils (%) (Auto) 1.8 % (0.0-4.0) Basophils (%) (Auto) 3.3 % (0.0-2.0) Neutrophils # (Auto) 4.8 TH/MM3 (1.8-7.7) Lymphocytes # (Auto) 1.3 TH/MM3 (1.0-4.8) Monocytes # (Auto) 0.8 TH/MM3 (0-0.9) Eosinophils # (Auto) 0.1 TH/MM3 (0-0.4) Basophils # (Auto) 0.2 TH/MM3 (0-0.2) CBC Comment DIFF FINAL Differential Comment Blood Urea Nitrogen 13 MG/DL (7-18) Creatinine 0.63 MG/DL (0.60-1.30) Random Glucose 101 MG/DL (74-106) Total Protein 7.1 GM/DL (6.4-8.2) Albumin 2.9 GM/DL (3.4-5.0) Calcium Level 8.9 MG/DL (8.5-10.1) Alkaline Phosphatase 77 U/L (45-117) Aspartate Amino Transf (AST/SGOT) 611 U/L (15-37) Alanine Aminotransferase (ALT/SGPT) 377 U/L (12-78) Total Bilirubin 0.8 MG/DL (0.2-1.0) Sodium Level 132 MEQ/L (136-145) Potassium Level 3.9 MEQ/L (3.5-5.1) Chloride Level 97 MEQ/L (98-107) Carbon Dioxide Level 29.6 MEQ/L (21.0-32.0) Anion Gap 5 MEQ/L (5-15) Estimat Glomerular Filtration Rate 122 ML/MIN (>89) Activated Partial Thromboplast Time 107.8 SEC (24.3-30.1) 58.5 SEC (24.3-30.1) Urine Color YELLOW (YELLW/STRAW) Urine Turbidity CLEAR (CLEAR) Urine pH 5.5 (5.0-8.5) Urine Specific Redig 1.010 (1.002-1.035) Urine Protein NEG mg/dL (NEG-TRACE) Urine Glucose (UA) NEG mg/dL (NEG) Urine Ketones NEG mg/dL (NEG) Urine Occult Blood NEG (NEG) Urine Nitrite NEG (NEG) Urine Bilirubin NEG (NEG) Urine Urobilinogen 0.2 MG/DL (LESS THAN Urine Leukocyte Esterase NEG (NEG) . Result Diagram: 01/29/18 0440 01/29/18439 Microbiology Microbiology Date/Time Source Procedure Growth Status 01/28/18 16:05 Stool Stool Stool Occult Blood (MATT) - Final HEMOCCULT NEGATIVE Complete . Imaging Last 72 hours Impressions Liver Ultrasound 01/29/18 1602 Signed Impressions: Service Date/Time: Monday, January 29, 2018 08:17 - CONCLUSION: 1. Cholelithiasis. 2. Diffusely coarse echotexture of the liver without focal mass. Zachary Deng MD CT Angiography 01/28/18 115 Signed Impressions: Service Date/Time: Sunday, January 28, 2018 13:20 - CONCLUSION: 1. Evidence of right lower lobe pulmonary emboli with dense surrounding consolidation. 2. Small bilateral pleural effusions. Franco Lamas MD Abdomen/Pelvis CT 01/28/18 1150 Signed Impressions: Service Date/Time: Sunday, January 28, 2018 13:20 - CONCLUSION: 1. Right lower lobe pulmonary embolism again identified with small bilateral pleural effusions and dense consolidation in the right lower lobe. 2. Cholelithiasis with multiple small gallstones with no gallbladder wall thickening or pericholecystic fluid. 3. Nonspecific, nonobstructed bowel gas pattern most characteristic of an ileus. 4. Heterogeneous liver with ill-defined low-attenuation areas and simple cyst in the left lobe of the liver. This is nonspecific but could be secondary to fatty infiltration and focal fatty sparing. Franco Lamas MD Chest X-Ray 01/28/18 1056 Signed Impressions: Service Date/Time: Sunday, January 28, 2018 11:02 - CONCLUSION: Midinspiratory study with mild patchy perihilar and bibasilar opacities which may be artifactual. Franco Lamas MD . Patient/Family Conference Present at Family Conference: Met with patient in the intensive care unit. . Family Conference Location: Bedside Issues Discussed: * Palliative care role, purpose, approach * Patients general health, functional status, and cognitive changes in the months leading up to the current hospitalization * Patient/family understanding of the current medical problems * Patient/family understanding of prognosis * Patients goals of care as best understood from advance directives and/or conversations and/or values * Current medical treatment options and benefits/burdens of those options * Likely scenarios comparing ongoing aggressive care with a transition to comfort measures only * Questions answered to the best of my ability * Palliative care contact information provided . Assessment and Plan Disease Oriented Problem List: (1) CHF exacerbation (2) Hyponatremia (3) Hypotension (4) Hyperglycemia (5) Transaminitis (6) Elevated troponin (7) Afib (8) Acute pulmonary embolus (9) Pleural effusion Symptom Scale: (1) Debility 0-10 Scale: Unable to quantify (2) Dyspnea 0-10 Scale: 0 (Patient denies dyspnea) Pertinent Non-Medical Issues Psychosocial:Patient is retired. He has a college education. Patient has 4 adult children (3 daughters and 1 son). Spiritual: [employer] j[employer] Legal: Patient currently has good insight and judgment related to his medical conditions. His son, Adama Mcclellan, is designated as the healthcare surrogate decision maker in the event that the patient is no longer capacitated Ethical issues impacting care: No known ethical issues impacting care at this time. . [facility], son: [phone] Prognosis Patient is an 82-year-old debilitated male with a complex medical history. [facility] a [facility] of a [facility] for 9 years status post right AKA; he is dependent for all ADLs. Patient was recently treated for new onset atrial fibrillation. He is currently hospitalized with acute CHF exacerbation as well as a pulmonary embolus. Patient refusing further diagnostic procedures or aggressive interventions. Hospice consult pending. . Code Status: No Code Plan * NO CODE * Decision-making: Patient currently has good insight and judgment related to his medical conditions. His son, Adama Mcclellan, is designated as the healthcare surrogate decision maker in the event that the patient is no longer capacitated * Goals: Palliative care had a lengthy conversation about aggressive versus comfort focused medical treatment goals. Patient clearly indicating that he wants to return to his the [facility] to be kept comfortable; he states he does not want any one else "poking at me." * Phone call placed to patient's son, with the patient's permission, to inform him that the patient has decided to meet with hospice. Patient's son is supportive this transition. * Hospice consult pending * Spoke to hospice intakeKatherine. Changes and medical treatment goals were also discussed with bedside RN and Dr. Beverly. * Symptom management-dyspnea: Multifactoral. Patient currently admitted with acute CHF exacerbation and pulmonary embolus. He denies dyspnea on supplemental oxygen, however he is tachypneic and appears short of breath. * Palliative care contact information provided to patient/family * Palliative care will continue to follow this patient throughout his hospitalization to establish trust, assist with symptom management and clarification of medical treatment goals. . Thank you for the opportunity to participate in the care of Mr. Mcclellan. . Attestation To help prompt me to consider important information that might be impacting today's encounter and assessment, information from prior notes written by myself or my colleagues may have been "brought forward" into today's note. My signature on this note, however, is an attestation that I personally performed the exam, history, and/or decision-making noted today, and, unless otherwise indicated, the interactions with patient, family, and staff as well as the review of records all occurred today. I also attest that the listed assessment and stated plan reflect my best clinical judgment today based on the combination of historical information, prior notes, and today's exam/ interactions. When time spent is documented, it refers only to time spent today by the signer, or if indicated, combined time spent today by collaborating physician/nurse practitioner. . Amanda Tovar Jan 29, 2018 14:34
[2018-01-29] MEDS: LEVOFLOXACIN 500 MG TAB PO SCH (17:33)
[2018-01-29] MEDS: RESP: ALBUTEROL 2.5 MG/IPRATROPIUM 0.5 MG NEB (PRN) NEB (19:46)
[2018-01-29 19:48] VITALS: O2SAT 96
[2018-01-29 20:00] VITALS: BP 101/72; PULSE 130; PULSE 132; RESP 18; TEMP 98.3; O2SAT 96
[2018-01-29] MEDS ORDERED: ENOXAPARIN SODIUM 100 MG/ML SYRINGE SQ SCH (21:00)
[2018-01-29] MEDS: MIRTAZAPINE 15 MG TAB PO SCH (21:09)
[2018-01-29] MEDS: DONEPEZIL HCL 5 MG TAB PO SCH (21:10)
[2018-01-29] MEDS ORDERED: DOCUSATE SODIUM 50 MG/SENNA 8.6 MG TAB PO PRN (23:30)
[2018-01-29] MEDS ORDERED: MAGNESIUM HYDROXIDE SUSP 30 ML CUP PO PRN (23:30)
[2018-01-29] MEDS ORDERED: LACTULOSE SYRUP 20 GM/30 ML CUP PO PRN (23:30)
[2018-01-30] VITALS (11 sets, daily range): BP systolic 96–113; BP diastolic 54–73; PULSE 110–130; RESP 16–22; TEMP 97.5–98.7; O2SAT 92–95
[2018-01-30] MEDS: CALCIUM/VITAMIN D 250 MG/125 U TAB PO SCH ×2 (08:59→21:41)
[2018-01-30] MEDS: DILTIAZEM-CD 120 MG CAP ER PO SCH ×2 (08:59→21:43)
[2018-01-30] MEDS: SODIUM CHLORIDE 0.9% FLUSH 10 ML FLUSH IV FLUSH SCH ×2 (09:00→21:43)
[2018-01-30] MEDS: FUROSEMIDE 40 MG/4 ML VIAL IV PUSH SCH ×2 (09:00→17:51)
[2018-01-30] MEDS: LACTULOSE SYRUP 20 GM/30 ML CUP PO SCH (09:02)
[2018-01-30] MEDS ORDERED: DILTIAZEM HCL 30 MG TAB PO SCH (10:45)
--- NOTE | 2018-01-30 10:51 | ECHRPT ---
Indication: SHORTNESS OF BREATH CONCLUSIONS The left ventricular systolic function is severely reduced with an estimated ejection fraction less than 20%. There are findings consistent with dilated cardiomyopathy. There is multiple areas of akinesis including the anterior, apical and inferoapical carvajal, other wal ls appear overall hypokinetic Mild concentric left ventricular hypertrophy. The right ventricle is moderately dilated. The right ventricular systoilc function is severely decreased. Moderate mitral valve regurgitation. There is mild tricuspid valve regurgitation. BP: 115 / 85 HR: 112 Rhythm: Atrial fibrillation MEASUREMENTS (Male / Female) Normal Values Technical Quality:Fair 2D ECHO LV Diastolic Diameter PLAX 5.6 cm 4.2 - 5.9 / 3.9 - 5.3 cm LV Systolic Diameter PLAX 5.2 cm IVS Diastolic Thickness 1.1 cm 0.6 - 1.0 / 0.6 - 0.9 cm LVPW Diastolic Thickness 1.1 cm 0.6 - 1.0 / 0.6 - 0.9 cm LV Relative Wall Thickness 0.4 RV Internal Dim ED PLAX 3.9 cm LVOT Diameter 2.1 cm Aortic Root Diameter 3.1 cm LA Systolic Diameter LX 4.8 cm 3.0 - 4.0 / 2.7 - 3.8 cm M-MODE AV Cusp Separation MM 1.8 cm DOPPLER AV Peak Velocity 113.6 cm/s AV Peak Gradient 5.2 mmHg AV Mean Gradient 3.0 mmHg AV Velocity Time Integral 14.4 cm LVOT Peak Velocity 48.4 cm/s LVOT Peak Gradient 0.9 mmHg LVOT Velocity Time Integral 5.8 cm AV Area Cont Eq vti 1.4 cm AV Area Cont Eq pk 1.5 cm Mitral E Point Velocity 104.2 cm/s LV E' Lateral Velocity 17.0 cm/s Mitral E to LV E' Lateral Ratio 6.1 LV E' Septal Velocity 5.3 cm/s Mitral E to LV E' Septal Ratio 19.8 TR Peak Velocity 288.0 cm/s TR Peak Gradient 33.2 mmHg Right Atrial Pressure 10.0 mmHg Pulmonary Artery Systolic Pressu 43.2 mmHg Right Ventricular Systolic Press 43.2 mmHg PV Peak Velocity 29.7 cm/s PV Peak Gradient 0.4 mmHg FINDINGS LEFT VENTRICLE Normal left ventricular size. Mild concentric left ventricular hypertrophy. The left ventricular systolic function is severely reduced with an estimated ejection fraction less than 20%. There are findings consistent with dilated cardiomyopathy. There is multiple areas of akinesis including the anterior, apical and inferoapical carvajal, other wal ls appear overall hypokinetic RIGHT VENTRICLE The right ventricle is moderately dilated. The right ventricular systoilc function is severely decreased. LEFT ATRIUM The left atrial size is [id number] dilated. RIGHT ATRIUM The right atrial size is [id number] dilated. ATRIAL SEPTUM The interatrial septum not well visualized. AORTA The aortic root and proximal ascending aorta are not well visualized. MITRAL VALVE Grossly normal mitral valve. No mitral valve stenosis. Moderate mitral valve regurgitation. AORTIC VALVE Aortic valve sclerosis is present. No aortic valve regurgitation. No aortic valve stenosis. TRICUSPID VALVE Grossly normal There is mild tricuspid valve regurgitation. PULMONARY VALVE The pulmonary valve is not well visualized. VESSELS The inferior vena cava was not well visualized. Jesus San DO (Electronically Signed) Final Date:30 January 2018 10:51
--- NOTE | 2018-01-30 12:04 | HHI.PR ---
Subjective Remarks Hospice intake nurse informed me today that there was a change in the son's disposition from wanting hospice to declining hospice. The patient himself yesterday allegedly got very agitated and told his son to exit the room as well as the hospice staff. The patient himself reiterates to me today that he does not want to be poked anymore and he is okay with dying when it is his time. Hospice nurse thus has requested me to consult psychiatry for capacity assessment. Patient intermittently refused meds this morning telling the nurse that he is going to take his medicines when he felt like he needed them. Objective Vital Signs Date Time Temp Pulse Resp B/P (MAP) Pulse Ox O2 Delivery O2 Flow Rate FiO2 01/30/18 09:02 19 01/30/18 04:00 112 01/30/18 04:00 98.6 125 18 101/62 (75) 92 01/30/18 00:00 129 01/30/18 00:00 97.8 130 16 106/56 (73) 95 01/29/18 20:00 98.3 130 18 101/72 (82) 96 01/29/18 20:00 132 01/29/18 19:48 96 Nasal Cannula 3.00 I/O 01/29/18 01/29/18 01/29/18 01/30/18 01/30/18 01/30/18 06:59 14:59 22:59 06:59 14:59 22:59 Intake Total 700 ml Balance 700 ml Intake Oral 700 ml # Voids 3 3 4 # Bowel Movements 1 0 Result Diagram: 01/29/180 01/29/18 0440 Objective Remarks Coarse breath sounds bilaterally, unlabored breathing heart rate is tachycardic and regular, on nasal cannula, no cyanosis A/P Assessment and Plan SOB -Likely multifactorial from CHF exacerbation as well as pulmonary embolism -See treatment below CHF exacerbation likely secondary to A. fib with RVR -IV diuresis, control A. fib as below A. fib with RVR -Likely worsened with pulmonary embolism, continue cardizem Pulmonary embolism -Transitioning from Lovenox to Eliquis Hyponatremia Likely secondary to volume overload We will continue with gentle diuresis and follow clinically And further workup if no improvement Hypotension improved Transaminitis Likely multifactorial due to alcohol (patient is a rehab resident), v. passive congestion due to congestive heart failure v. Acute viral illness Follow-up liver ultrasound and continue with diuresis Elevated troponin Multifactorial due to tachycardia, dysrhythmia and CHF Continue with heparin Continue diltiazem Consider beta-malik if uncontrolled, we will follow-up echocardiogram Patient is a poor candidate for any cardiac intervention given his baseline status and current goals of treatment; no need for cards consult at this time Hyperglycemia Continue to follow closely, no history of diabetes May be stress reaction Pleural effusion Likely secondary to CHF exacerbation however there is some consolidative changes Continue empiric Levaquin, patient is empirically treated based on low risk of MDR and early healthcare associated pneumonia probability Addendum: Psychiatry consultation renders the patient conserving his capacity to make medical decisions. Notified hospice team. Discharge Planning awaiting hospice intake Alexis Beverly MD Jan 30, 2018 12:04
[2018-01-30] MEDS: APIXABAN 5 MG TABLET PO SCH ×2 (13:06→21:42)
--- NOTE | 2018-01-30 14:16 | PD.PSY.CON ---
Provisional Diagnosis Admission Date Jan 28, 2018 at 14:41 [place]. Psychological factor affecting another medical conditions History of Present Illness Service Psychiatry Consult Requested By ER Reason for Consult Decision-making capacity Primary Care Physician Js Brown M.D. HPI This patient is an 82-year-old man, domiciled in in a intermediate facility, single, retired, without no previous psychiatric history, no previous psychiatric hospitalizations, no previous suicide attempts, he denies the use of illegal drugs and alcohol, with at least a week of increased work of breathing and shortness of breath. Patient is poorly mobile at baseline due to previous right AKA and left leg contractures. He has had increased edema on the left extremity and increased work of breathing and shortness of breath per his report. Patient was not hypoxemic but he was hypotensive and quite edematous on arrival in the emergency room. He normally lives in a intermediate facility in long-term care and came for evaluation after several days of complaints. Here he has been found to be tachycardic and hypotensive with hyponatremia and elevated LFTs and elevated BNP. Patient also been evaluated by CT and joint found to have an acute pulmonary embolism. Patient is recommended for admission in the hospital by the ER MD. Patient does carry a DO NOT RESUSCITATE with him and does not want aggressive measures undertaken. Patient is hypotensive with a pulmonary embolism and is not a candidate for TPA given his underlying comorbidities. Patient would like medical management and is agreeable to heparin with some anticoagulation long-term. Of note he was recently admitted to the hospital and [facility] last month with acute onset of atrial fibrillation and deemed not a candidate for anticoagulation due to increased fall risks. At this time patient does complain of moderate back pain and previously had been taking Percocet at the rehab. Consulted to psychiatry for decision-making capacity. On psychiatric evaluation today the patient is calm, cooperative, reports to be happy. Patient denies depressive symptoms, he denies anxiety and psychosis. Patient denies suicidal and homicidal ideation. He is logical, coherent and relevant. Able to verbalize a fair understanding and appreciation of medical conditions. Agree with following medical recommendations. Open to discuss placement in hospice. Past Family Social History Coded Allergies: penicillin G (Unverified Allergy, Severe, Anaphylaxis, 01/28/18) Active Scripts Apixaban (Eliquis) 5 Mg Tab, 10 MG PO BID for Blood Clot Prevention, #14 TAB 0 Refills Prov:Alexis Beverly MD 01/31/18 Apixaban (Eliquis) 5 Mg Tab, 5 MG PO BID for Blood Clot Prevention, #60 TAB 0 Refills Prov:Alexis Beverly MD 01/31/18 Reported Medications Dextromethorphan-Guaifenesin (Tussin Dm 100-10 mg/5Ml) 100 Mg-10 Mg/5 Ml Liq, 10 ML PO Q6HR Y for COUGH 01/28/18 Multiple Vitamins W/ Minerals (Thera-M) 1 Tab, 1 TAB PO DAILT for Nutritional Supplement, TAB 0 Refills 01/28/18 Simvastatin (Zocor) 20 Mg Tab, 20 MG PO HS for Cholesterol Management, #30 TAB 0 Refills 01/28/18 Simethicone (Gas Relief) 80 Mg Chw 01/28/18 Carboxymethylcellulose Sodium Opth Drops (Refresh Tears Opth Drops) 0.5% Drops, 1 DROP EACH EYE DAILY 01/28/18 Multiple Vitamins W/ Minerals (Preservision Areds) 1 Tab, 1 TAB PO DAILY for Nutritional Supplement, TAB 0 Refills 01/28/18 Potassium Chloride ER (Potassium Chloride ER) 10 Meq Cap, 10 MEQ PO DAILY for Electrolyte Replacement, #30 CAP 0 Refills 01/28/18 Oxycodone-Acetaminophen (Percocet) 10-325 mg Tab, 1 TAB PO Q4H Y for PAIN, TAB 0 Refills 01/28/18 Calcium Carbonate-Cholecalciferol (Calcium 500 +D) 500-400 Mg-Unit Tab, 1 TAB PO BID for Calcium Supplement, TAB 0 Refills 01/28/18 Mirtazapine (Mirtazapine) 30 Mg Tab, 30 MG PO HS for Depression Control, #30 TAB 0 Refills 01/28/18 Magnesium Hydroxide Liq (Milk of Magnesia Liq) 400 Mg/5 Ml Susp, 15 ML PO DAILY Y for CONSTIPATION, #1 BOTTLE 0 Refills 01/28/18 Furosemide (Lasix) 20 Mg Tab, 20 MG PO BID, #60 TAB 0 Refills 01/28/18 Lactulose Liq (Lactulose Liq) 10 Gm/15 Ml Soln, 30 ML PO DAILY, ML 0 Refills 01/28/18 Ketoconazole Topical (Ketoconazole Topical) 2% Cream, 1 APPLIC TOPICAL BID for Fungal Infection, #15 GM 0 Refills 01/28/18 Ipratropium-Albuterol Neb (Duoneb) 0.5-2.5 Mg/3 Ml Neb, 1 NEBULE INH BID for Breathing Treatment, #30 NEBULE 0 Refills 01/28/18 Ibandronate (Ibandronate) 150 Mg Tab, 150 MG PO Q28D, #1 TAB 0 Refills 01/28/18 Fenofibrate (Fenofibrate) 145 Mg Tab, 145 MG PO DAILY, #30 TAB 0 Refills 01/28/18 Donepezil (Donepezil) 10 Mg Tab, 10 MG PO HS for Dementia, #30 TAB 0 Refills 01/28/18 Diltiazem ER 12 HR (Diltiazem ER 12 HR) 120 Mg Caper, 120 MG PO BID, #60 CAP 0 Refills 01/28/18 Diphenhydramine HCl (Benadryl Allergy) 25 Mg Tablet, 25 MG PO HS Y for INSOMNIA 01/28/18 Acetaminophen (Acetaminophen) 325 Mg Capsule, 650 MG PO Q6HR Y for FEVER 01/28/18 Hydrocortisone (Topical) (Hydrocortisone 1% in Abso) 1 % Oin 01/28/18 Current Medications Medications (Trade) Dose Ordered Sig/Zackery Route Start Time Stop Time Status Last Admin (NS Flush) 2 ml UNSCH PRN IV FLUSH 01/28/18 15:15 (NS Flush) 2 ml BID IV FLUSH 01/28/18 21:00 01/30/18 09:00 (Tylenol) 650 mg Q4H PRN PO 01/28/18 15:15 (Zofran Inj) 4 mg Q6H PRN IVP 01/28/18 15:15 (Narcan Inj) 0.4 mg UNSCH PRN IV PUSH 01/28/18 15:15 (Lasix Inj) 40 mg BID@18 IV PUSH 01/28/18 18:00 01/30/18 09:00 (Roxicodone) 10 mg Q4H PRN PO 01/28/18 15:15 01/30/18 06:19 (Duoneb Neb) 1 ampule Q2HR NEB PRN NEB 01/28/18 15:15 01/29/18 19:46 (Aricept) 10 mg HS PO 01/28/18 21:00 01/29/18 21:10 (Lactulose Liq) 30 ml DAILY PO 01/29/18 09:00 01/30/18 09:02 (Remeron) 30 mg HS PO 01/28/18 21:00 01/29/18 21:09 (Oscal-D 250-125) 500 mg BID PO 01/28/18 21:00 01/30/18 08:59 (Cardizem Cd) 120 mg BID PO 01/28/18 21:00 01/30/18 08:59 (Benadryl) 25 mg HS PRN PO 01/28/18 16:15 01/29/18 21:37 (Levaquin) 500 mg DAILY@1600 PO 01/29/18 16:00 01/29/18 17:33 (Mallory-Colace) 2 tab BID PRN PO 01/29/18 23:30 01/30/18 06:15 (Lactulose Liq) 30 ml TID PRN PO 01/29/18 23:30 (Milk Of Magnesia Liq) 30 ml Q6H PRN PO 01/29/18 23:30 (Eliquis) 5 mg BID PO 01/30/18 10:45 01/30/18 13:06 Social History Patient was born and raised in [place], he lives in a intermediate facility , single, 4 kids, Physical Exam Vital Signs Vital Signs Date Time Temp Pulse Resp B/P (MAP) Pulse Ox O2 Delivery O2 Flow Rate FiO2 01/30/18 09:02 19 01/30/18 04:00 112 01/30/18 04:00 98.6 101/62 (75) 92 01/29/18 19:48 Nasal Cannula 3.00 I/O 01/30/18 01/30/18 01/31/18 08:00 16:00 00:00 Intake Total 700 ml Balance 700 ml Lab Results Date/Time Source Procedure Growth Status 01/28/18 16:05 Stool Stool Stool Occult Blood (MATT) - Final HEMOCCULT NEGATIVE Complete Mental Status Examination Appearance: Appropriate Consciousness: Alert Orientation: x4 Motor Activity: Normal gait Speech: Unremarkable Language: Adequate Fund of Knowledge: Adequate Attention and Concentration: Adequate Memory: Unremarkable Mood: Appropriate Affect: Appropriate Thought Process & Associations: Intact Thought Content: Appropriate Hallucination Type: None Delusion Type: None Suicidal Ideation: No Suicidal Plan: No Suicidal Intention: No Homicidal Ideation: No Homicidal Plan: No Homicidal Intention: No Insight: Adequate Judgment: Adequate Assessment & Plan Problem List: (1) Psychological factors affecting medical condition ICD Codes: F54 - Psychological and behavioral factors associated with disorders or diseases classified elsewhere Assessment & Plan: On psychiatric evaluation the patient presents calm, cooperative and pleasant. He is logical, coherent and relevant. Completely oriented X3. He denies symptoms of depression, anxiety, emmanuel and psychosis. He denies SI/HI/ VH/PATHAK He is able to verbalize the choice of following medical recommendations as well as "in my bet interest" and he is open to discuss Hospice. He also is able to verbalized a fair understating and appreciation of cocurrent medical situation and the consequences to not following recommendations. At this moment patient conserves his decision making capacity to participate in medical defections and discharge plan. No psychiatric admission indicated, no psychotropics at the moments. Consult appreciated. (2) CHF exacerbation ICD Codes: I50.9 - Heart failure, unspecified (3) Debility ICD Codes: R53.81 - Other malaise Assessment & Plan Estimated LOS: Zeyad Tanner MD Jan 30, 2018 14:16
[2018-01-30] MEDS: LEVOFLOXACIN 500 MG TAB PO SCH (16:00)
[2018-01-30] MEDS ORDERED: ALUMINUM/MAGNESIUM/SIMETH 30 ML CUP PO PRN (18:00)
[2018-01-30] MEDS: DONEPEZIL HCL 5 MG TAB PO SCH (21:40)
[2018-01-30] MEDS: MIRTAZAPINE 15 MG TAB PO SCH (21:42)
[2018-01-31] VITALS (8 sets, daily range): BP systolic 90–116; BP diastolic 62–65; PULSE 103–130; RESP 17–33; TEMP 98–98.3; O2SAT 88–95
[2018-01-31] MEDS: LACTULOSE SYRUP 20 GM/30 ML CUP PO SCH (08:55)
[2018-01-31] MEDS: APIXABAN 5 MG TABLET PO SCH (08:55)
[2018-01-31] MEDS: FUROSEMIDE 40 MG/4 ML VIAL IV PUSH SCH (08:55)
[2018-01-31] MEDS: CALCIUM/VITAMIN D 250 MG/125 U TAB PO SCH (08:56)
[2018-01-31] MEDS: SODIUM CHLORIDE 0.9% FLUSH 10 ML FLUSH IV FLUSH SCH (08:56)
[2018-01-31] MEDS: DILTIAZEM-CD 120 MG CAP ER PO SCH (08:56)
[2018-01-31] MEDS: RESP: ALBUTEROL 2.5 MG/IPRATROPIUM 0.5 MG NEB (PRN) NEB (10:19)
[2018-01-31] MEDS ORDERED: APIX5TAB PO (12:07)
--- NOTE | 2018-01-31 12:10 | HHI.DS ---
Discharge Summary Admission Date Jan 28, 2018 at 14:41 Discharge Date: Jan 31, 2018 Admitting Diagnosis ACUTE PULMONARY EMBOLUS (1) CHF exacerbation ICD Code: I50.9 - Heart failure, unspecified (2) Hyponatremia ICD Code: E87.1 - Hypo-osmolality and hyponatremia (3) Hypotension ICD Code: I95.9 - Hypotension, unspecified (4) Hyperglycemia ICD Code: R73.9 - Hyperglycemia, unspecified (5) Transaminitis ICD Code: R74.0 - Nonspecific elevation of levels of transaminase and lactic acid dehydrogenase [LDH] (6) Elevated troponin ICD Code: R74.8 - Abnormal levels of other serum enzymes (7) Pleural effusion ICD Code: J90 - Pleural effusion, not elsewhere classified (8) Afib ICD Code: I48.91 - Unspecified atrial fibrillation (9) Acute pulmonary embolus ICD Code: I26.99 - Other pulmonary embolism without acute cor pulmonale Status: Acute Procedures none Brief History - From Admission This patient is an 82-year-old gentleman with at least a week of increased work of breathing and shortness of breath. Patient is poorly mobile at baseline due to previous right AKA and left leg contractures. He has had increased edema on the left extremity and increased work of breathing and shortness of breath per his report. Patient was not hypoxemic but he was hypotensive and quite edematous on arrival in the emergency room. He normally lives in a retirement facility in long-term care and came for evaluation after several days of complaints. Here he has been found to be tachycardic and hypotensive with hyponatremia and elevated LFTs and elevated BNP. Patient also been evaluated by CT and joint found to have an acute pulmonary embolism. Patient is recommended for admission in the hospital by the ER MD. Patient does carry a DO NOT RESUSCITATE with him and does not want aggressive measures undertaken. Patient is hypotensive with a pulmonary embolism and is not a candidate for TPA given his underlying comorbidities. Patient would like medical management and is agreeable to heparin with some anticoagulation long-term. Of note he was recently admitted to the hospital and [facility] last month with acute onset of atrial fibrillation and deemed not a candidate for anticoagulation due to increased fall risks. At this time patient does complain of moderate back pain and previously had been taking Percocet at the rehab. CBC/BMP: 01/29/18 0440 01/29/18 0440 Significant Findings Laboratory Tests Test 01/28/18 14:30 01/28/18 16:05 01/28/18 22:40 01/29/18 04:40 Prothrombin Time 18.5 SEC (9.8-11.6) Activated Partial Thromboplast Time 30.5 SEC (24.3-30.1) 79.0 SEC (24.3-30.1) Total Creatine Kinase 34 U/L (39-308) Troponin I 0.06 NG/ML (0.02-0.05) Acetaminophen Level LESS THAN 2.0 MCG/ML Hemoglobin 12.4 GM/DL (13.0-17.0) Hematocrit 38.7 % (39.0-51.0) Monocytes (%) (Auto) 10.7 % (0.0-8.0) Basophils (%) (Auto) 3.3 % (0.0-2.0) Albumin 2.9 GM/DL (3.4-5.0) Aspartate Amino Transf (AST/SGOT) 611 U/L (15-37) Alanine Aminotransferase (ALT/SGPT) 377 U/L (12-78) Sodium Level 132 MEQ/L (136-145) Chloride Level 97 MEQ/L (98-107) Test 01/29/18 06:30 01/29/18 09:30 01/29/18 13:00 Activated Partial Thromboplast Time 107.8 SEC (24.3-30.1) 58.5 SEC (24.3-30.1) Hospital Course Patient was admitted, patient on telemetry, started on heparin drip as well as diuresis for systolic CHF exacerbation. Was transitioned to Lovenox and then Eliquis for his pulmonary embolism. Patient requested comfort care, underwent psychiatric evaluation which deemed appropriate for medical decision-making capacity. Patient underwent hospice consultation. Patient agreed to hospice, will be discharged to hospice at [facility]. Pt Condition on Discharge: Stable Discharge Disposition: Hospice/Med Facility Discharge Time: <= 30 minutes Discharge Instructions DIET: Follow Instructions for: As Tolerated, No Restrictions Activities you can perform: See Additionl Instruction Other Activity Instructions: bedridden New Medications: Apixaban (Eliquis) 5 Mg Tab 5 MG PO BID for Blood Clot Prevention, #60 TAB 0 Refills Apixaban (Eliquis) 5 Mg Tab 10 MG PO BID for Blood Clot Prevention, #14 TAB 0 Refills Alexis Beverly MD Jan 31, 2018 12:10
[2018-01-31] MEDS ORDERED: APIXABAN 5 MG TABLET PO ONE (12:15)
== END 2018-01-31 14:45 | DRG 176 ==
LOC: PHED 10:36 → PHEDA 14:41 → PHICU 18:38
PROVIDERS: ADMIT Hospitalist; ATTEND Hospitalist
DX: I26.99 Other pulmonary embolism without acute cor pulmonale (principal); E87.1 Hypo-osmolality and hyponatremia; I95.9 Hypotension, unspecified; I11.0 Hypertensive heart disease with heart failure; J90 Pleural effusion, not elsewhere classified; I50.9 Heart failure, unspecified; I48.91 Unspecified atrial fibrillation; F03.90 Unspecified dementia, unspecified severity, without behavioral disturbance, psychotic disturbance, mood disturbance, and anxiety; R00.0 Tachycardia, unspecified; E78.00 Pure hypercholesterolemia, unspecified; E78.5 Hyperlipidemia, unspecified; R73.9 Hyperglycemia, unspecified; R74.0 Nonspecific elevation of levels of transaminase and lactic acid dehydrogenase [LDH]; R74.8 Abnormal levels of other serum enzymes; F54 Psychological and behavioral factors associated with disorders or diseases classified elsewhere; K80.20 Calculus of gallbladder without cholecystitis without obstruction; I25.10 Atherosclerotic heart disease of native coronary artery without angina pectoris; M54.9 Dorsalgia, unspecified; Z96.652 Presence of left artificial knee joint; M19.90 Unspecified osteoarthritis, unspecified site; Z51.5 Encounter for palliative care; Z89.511 Acquired absence of right leg below knee; Z87.891 Personal history of nicotine dependence; Z66 Do not resuscitate
CPT/HCPCS: 71045; 71275; 74177; 76705; 80053; 80307; 81001; 82272; 82550; 83880; 84484; 85025; 85610; 85730; 93005; 93306; 94640; 94664; 96361; 96374; J1644; J1650; J1940; J1956; J7030; Q9967